=== PATIENT | female | born 1980 | race Caucasian/White ===

== ENCOUNTER 2024-08-10 12:15 | Emergency (ER) | payer OTHER ==
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
[2024-08-10 12:35] VITALS: TEMP 98.9
[2024-08-10] MEDS ORDERED: BABY ASPIRIN 81 MG CHEW ONE (12:48)
[2024-08-10] MEDS: BABY ASPIRIN 81 MG CHEW PO ONE (12:51)
[2024-08-10 12:57] LABS: Absolute Neutrophil Ct (ANC) 4.68 x10^3/uL (1.56-6.13); BASOPHIL % 1.1 % (0.1-1.2); Basophil (Absolute #) 0.08 x10^3/uL (0.01-0.08); Eosinophil % 0.7 % (0.7-5.8); Eosinophil (Absolute #) 0.05 x10^3/uL (0.04-0.36); Hematocrit 37.2 % (34.1-44.9); Hemoglobin 12.2 g/dL (11.2-15.7); IMMATURE GRAN # 0.02 x10^3u/L (0.001-0.031); IMMATURE GRAN % 0.3 % (0.001-0.429); Lymphocyte (Absolute #) 2.24 x10^3/uL (1.18-3.74); Lymphocytes % 30.2 % (19.3-51.7); Mean Cell Volume 88.6 fL (79.4-94.8); Mean Corpuscular Hgb Concent. 32.8 g/dL (32.2-35.5); Mean Platelet Volume 10.1 fL (9.4-12.3); Monocyte (Absolute #) 0.34 x10^3/uL (0.24-0.86); Monocytes % 4.6 % (4.7-12.5); Neutrophil % 63.1 % (34.0-71.1); Platelet Count 365 x10^3/uL (182-369); Red Cell Distribution Width 13.2 % (11.7-14.4); White Blood Count 7.4 x10^3/uL (3.98-10.04)
--- NOTE | 2024-08-10 13:08 | XRAY ---
Indication: Chest pain. Comparison: None Portable chest hyperinflated and clear. Heart not enlarged. Bony thorax intact. No acute findings.
[2024-08-10 13:12] LABS: ACETAMINOPHEN < 10 ug/ml (10-30); ALBUMIN 4.8 g/dL (3.5-5.0); ALKALINE PHOSPHATASE 120 U/L (38-126); ANION GAP 17.6 MEQ/L (5-15); BLOOD UREA NITROGEN 11 mg/dL (7-17); CHLORIDE 108 mmol/L (98-107); Calcium 9.6 mg/dL (8.4-10.2); Carbon Dioxide 20 mmol/L (22-30); Creatinine 1 0.62 mg/dL (0.52-1.04); EST GLOMERULAR FILTRATION RATE 111.2 ML/MIN; ETHYL ALCOHOL < 10 mg/dL (0-10); Glucose 94 mg/dL (74-106); Potassium 4.1 mmol/L (3.5-5.1); SALICYLATE < 1.0 mg/dL (2-20); SGOT/AST 24 U/L (14-36); SGPT/ALT 13 U/L (0-35); SODIUM 142 mmol/L (135-145); Total Protein 7.5 g/dL (6.3-8.2)
[2024-08-10 13:24] LABS: MAGNESIUM 1.9 mg/dL (1.6-2.3); TROPONIN < 0.012 ng/mL (0.000-0.033)
[2024-08-10] MEDS ORDERED: Sodium Chloride 0.9% 1000 ML 1,000 ML ONE (13:32)
[2024-08-10] MEDS: Sodium Chloride 0.9% 1000 ML 1,000 ML IV STA (13:35)
--- NOTE | 2024-08-10 14:57 | XRAY ---
Indication: Pain following fall. Multiple contiguous images obtained through the cervical spine. Sagittal and coronal reformatted images obtained. Comparison: None Axial images negative for acute fracture, suspicious bony lesions, or spinal canal stenosis. Minimal/mild C3-C7 anterior/posterior endplate spurring. Mild/moderate bilateral C2-C6 degenerative facet hypertrophy. Sagittal and coronal reformatted images demonstrates lordotic reversal, positional versus paraspinal spasm. 2 mm anterolisthesis C3 on C4 on C5. Minimal C5-C6 disc space narrowing. No acute compression fracture, subluxation, or jumped facet. Normal appearing craniocervical junction. Visualized noncontrasted soft tissues including base of brain unremarkable. Lung apices demonstrates mild biapical pleural thickening and subpleural cystic changes. Impression: 1. Negative acute fracture. 2. Cervical lordotic reversal, positional versus paraspinal spasm. 3. Multilevel degenerative spondylosis and minimal grade 1 listhesis C3 on C4 on C5. 4. Biapical pleural thickening & subpleural cystic changes.
[2024-08-10] MEDS ORDERED: Ativan 2 MG/1 ML VIAL ONE (16:07)
[2024-08-10] MEDS: Ativan 2 MG/1 ML VIAL IV ONE (16:10)
[2024-08-10 16:15] VITALS: O2SAT 97
[2024-08-10 16:19] LABS: Appearance Clear (Clear); Bacteria None Seen /HPF (None Seen); Bilirubin Negative (Negative); Blood Negative (Negative); Epithelial Cells None Seen /HPF (None Seen); Glucose, Urine Negative (Negative); Hyaline Casts NONE SEEN /LPF (0-2); Ketones Negative (Negative); Leukocyte Esterase Moderate (Negative); Nitrite Negative (Negative); Protein,Urine Dip Negative (Negative); RBC 0-2 /HPF (0-5); Urobilinogen 0.2 mg/dL (0.2)
[2024-08-10 16:28] LABS: Amphetamine,Urine NEGATIVE (NEGATIVE); Barbiturate,Urine NEGATIVE (NEGATIVE); Benzodiazepine,Urine NEGATIVE (NEGATIVE); Cocaine,Urine NEGATIVE (NEGATIVE); Methadone,Urine NEGATIVE (NEGATIVE); Opiate,Urine NEGATIVE (NEGATIVE); PCP,Urine NEGATIVE (NEGATIVE); THC,Urine POSITIVE (NEGATIVE)
[2024-08-10 17:13] VITALS: BP 156/103; PULSE 89; RESP 10
== END 2024-08-10 17:34 | disposition home or self-care (01) ==
LOC: ED 12:15
DX: R07.9 Chest pain, unspecified (principal); Z79.899 Other long term (current) drug therapy; Z59.811 Housing instability, housed, with risk of homelessness; Z59.41 Food insecurity; Z59.82 Transportation insecurity; Z63.9 Problem related to primary support group, unspecified; Z56.0 Unemployment, unspecified; Z59.9 Problem related to housing and economic circumstances, unspecified; Z75.3 Unavailability and inaccessibility of health-care facilities
CPT/HCPCS: 36415; 71045; 72125; 80053; 80143; 80179; 80307; 81001; 82077; 83735; 84484; 85025; 93005; 93041; 94760; 96361; 96374; 96375; 99285; J2060; A9270-GY

== ENCOUNTER 2024-09-05 19:57 | Emergency (ER) | payer OTHER ==
--- NOTE | 2024-09-05 20:10 | ERPHSYRPT ---
- History of Present Illness Time Seen by Provider: 09/05/24 20:10 Historian: patient Exam Limitations: no limitations Physician History: Patient is a 44-year-old smoker presents to our ED for evaluation of what appeared to be a panic attack. However into the panic attack patient began to experience chest pain. Chest pain described as an ache that substernal. No associated nausea vomiting or diaphoresis. No trauma no fever. No trauma no fever. Symptoms are mild to moderate in intensity. No specific worsening or improving factors. Patient otherwise feels well. She voices no other complaints or concerns at this time. Portions of this note were created with voice recognition technology. There may be grammatical, spelling, punctuation or sound alike errors Timing/Duration: today Activities at Onset: none Quality: aching Location: substernal Chest Pain Radiation: no radiation Severity of Pain-Max: moderate Severity of Pain-Current: mild Modifying Factors: Improves With: nothing Associated Symptoms: denies symptoms Prior Chest Pain/Cardiac Workup: no prior chest pain Nitro Today/Relief: no nitro taken today Aspirin Treatment Today: no aspirin today Allergies/Adverse Reactions: peanut Allergy (Severe, Verified 08/10/24 12:37) Shortness of Breath Home Medications: Escitalopram Oxalate [Lexapro] 10 mg PO DAILY 08/10/24 [History] Quetiapine Fumarate [Seroquel] 50 mg PO HS 08/10/24 [History] Hx Tetanus, Diphtheria Vaccination/Date Given: No Hx Influenza Vaccination/Date Given: No Hx Pneumococcal Vaccination/Date Given: No Travel Risk - Emerging Infectious Disease Are you exhibiting symptoms associated with any current EIDs: No - Review of Systems Constitutional: No Symptoms, No Fever, No Chills Eyes: No Symptoms Ears, Nose, & Throat: No Symptoms Respiratory: No Symptoms, No Cough, No Dyspnea Cardiac: No Symptoms, No Chest Pain, No Edema, No Syncope Abdominal/Gastrointestinal: No Symptoms, No Abdominal Pain, No Nausea, No Vomiting, No Diarrhea Genitourinary Symptoms: No Symptoms, No Dysuria Musculoskeletal: No Symptoms, No Back Pain, No Neck Pain Skin: No Symptoms, No Rash Neurological: No Symptoms, No Dizziness, No Focal Weakness, No Sensory Changes Psychological: No Symptoms Endocrine: No Symptoms Hematologic/Lymphatic: No Symptoms Immunological/Allergic: No Symptoms All Other Systems: Reviewed and Negative - Past Medical History Pertinent Past Medical History: Yes Psycho-Social History: Depression - Past Surgical History Past Surgical History: Yes Other Surgical History: left side of head. right hand. left hand. left ankle - Female History Hx Last Menstrual Period: menopause - Social History Smoking Status: Current every day smoker How long have you smoked: years Exposure to second hand smoke: Yes Drug Use: none - Social Determinants of Health Will the patient participate in the screening: Yes Do you worry about a steady place to live?: Yes In the past 12 months,have you had to go without utilities?: No Transportation Issues: Yes Has anyone in your support network made you feel unsafe?: Yes Have you or anyone in your house had to go w/o enough food: Yes - Nursing Vital Signs Nursing Vital Signs: Initial Vital Signs Temperature 98.7 F 09/05/24 19:58 Pulse Rate 74 09/05/24 19:58 Respiratory Rate 16 09/05/24 19:58 Blood Pressure 129/85 09/05/24 19:58 O2 Sat by Pulse Oximetry 98 09/05/24 19:58 Pain Scale Pain Intensity 5 - Physical Exam General Appearance: no apparent distress, alert Eye Exam: PERRL/EOMI, eyes nml inspection Ears, Nose, Throat Exam: normal ENT inspection, moist mucous membranes Neck Exam: normal inspection, non-tender, supple, full range of motion Respiratory Exam: normal breath sounds, lungs clear, airway intact, No respiratory distress Cardiovascular Exam: regular rate/rhythm, normal heart sounds Gastrointestinal/Abdomen Exam: soft, No tenderness, No mass Back Exam: normal inspection, No CVA tenderness, No vertebral tenderness Extremity Exam: normal inspection, normal range of motion Neurologic Exam: alert, oriented x 3, cooperative, normal mood/affect, sensation nml, No motor deficits Skin Exam: normal color, warm, dry Lymphatic Exam: No adenopathy SpO2 Interpretation: normal SpO2: 98 O2 Delivery: Room Air - Course Nursing assessment & vital signs reviewed: Yes EKG Interpreted by Me: RATE (90), Sinus Rhythm, NORMAL AXIS, NORMAL INTERVALS, NORMAL QRS - Radiology Exams Chest X-ray Interpretation: Interpreted by me (NO acute findings) Ordered Tests: Active Orders 24 hr Category Date Time Status Pharmaceutical Specialty Representative STAT Care 09/05/24 20:13 Active EKG-ER Only STAT Care 09/05/24 20:13 Active IV Insertion STAT Care 09/05/24 20:13 Active Pulse Oximetry (ED) STAT Care 09/05/24 20:13 Active ACO SDOH Referral ONCE Cons 09/05/24 20:39 Active CHEST 1 VIEW (PORTABLE) Stat Exams 09/05/24 21:39 Taken CBC W DIFF Stat Lab 09/05/24 20:20 Completed CMP Stat Lab 09/05/24 20:20 Completed D-DIMER QUANTITATIVE Stat Lab 09/05/24 20:20 Completed HCG QUALITATIVE, URINE Stat Lab 09/05/24 Ordered NT PRO BNPII Stat Lab 09/05/24 20:20 Completed TROPONIN Q4H Lab 09/05/24 20:20 Completed TROPONIN Stat Lab 09/05/24 23:35 Completed UA W/RFX UR CULTURE Stat Lab 09/05/24 20:13 Ordered Lab/Rad Data: Laboratory Result Diagrams 09/05/24 20:20 09/05/24 20:20 Laboratory Results 09/05/24 09/05/24 09/05/24 Range/Units 23:35 20:20 20:20 WBC (3.98-10.04) x10^3/uL RBC (3.93-5.22) x10^6/uL Hgb (11.2-15.7) g/dL Hct (34.1-44.9) % MCV (79.4-94.8) fL MCH (25.6-32.2) pg MCHC (32.2-35.5) g/dL RDW (11.7-14.4) % Plt Count (182-369) x10^3/uL MPV (9.4-12.3) fL Gran % (34.0-71.1) % Immature Gran % (Auto) (0.001-0.429) % Nucleat RBC Rel Count (0.00-0.2) % Eos # (Auto) (0.04-0.36) x10^3/uL Immature Gran # (Auto) (0.001-0.031) x10^3u/L Absolute Lymphs (auto) (1.18-3.74) x10^3/uL Absolute Monos (auto) (0.24-0.86) x10^3/uL Absolute Nucleated RBC (0.00-0.012) x10^3u/L Lymphocytes % (19.3-51.7) % Monocytes % (4.7-12.5) % Eosinophils % (0.7-5.8) % Basophils % (0.1-1.2) % Absolute Granulocytes (1.56-6.13) x10^3/uL Basophils # (0.01-0.08) x10^3/uL D-Dimer 0.29 (0.0-0.50) mg/L Sodium (135-145) mmol/L Potassium (3.5-5.1) mmol/L Chloride (98-107) mmol/L Carbon Dioxide (22-30) mmol/L Anion Gap (5-15) MEQ/L BUN (7-17) mg/dL Creatinine (0.52-1.04) mg/dL Estimated GFR ML/MIN Glucose (74-106) mg/dL Calcium (8.4-10.2) mg/dL Total Bilirubin (0.2-1.3) mg/dL AST (14-36) U/L ALT (0-35) U/L Alkaline Phosphatase (38-126) U/L Troponin I < 0.012 < 0.012 (0.000-0.033) ng/mL NT-Pro-B Natriuret Pep (<300) pg/mL Serum Total Protein (6.3-8.2) g/dL Albumin (3.5-5.0) g/dL 09/05/24 09/05/24 Range/Units 20:20 20:20 WBC 8.4 (3.98-10.04) x10^3/uL RBC 3.77 L (3.93-5.22) x10^6/uL Hgb 11.1 L (11.2-15.7) g/dL Hct 33.7 L (34.1-44.9) % MCV 89.4 (79.4-94.8) fL MCH 29.4 (25.6-32.2) pg MCHC 32.9 (32.2-35.5) g/dL RDW 13.2 (11.7-14.4) % Plt Count 303 (182-369) x10^3/uL MPV 10.4 (9.4-12.3) fL Gran % 55.5 (34.0-71.1) % Immature Gran % (Auto) 0.4 (0.001-0.429) % Nucleat RBC Rel Count 0.0 (0.00-0.2) % Eos # (Auto) 0.05 (0.04-0.36) x10^3/uL Immature Gran # (Auto) 0.03 (0.001-0.031) x10^3u/L Absolute Lymphs (auto) 3.13 (1.18-3.74) x10^3/uL Absolute Monos (auto) 0.45 (0.24-0.86) x10^3/uL Absolute Nucleated RBC 0.00 (0.00-0.012) x10^3u/L Lymphocytes % 37.3 (19.3-51.7) % Monocytes % 5.4 (4.7-12.5) % Eosinophils % 0.6 L (0.7-5.8) % Basophils % 0.8 (0.1-1.2) % Absolute Granulocytes 4.66 (1.56-6.13) x10^3/uL Basophils # 0.07 (0.01-0.08) x10^3/uL D-Dimer (0.0-0.50) mg/L Sodium 140 (135-145) mmol/L Potassium 3.7 (3.5-5.1) mmol/L Chloride 108 H (98-107) mmol/L Carbon Dioxide 19 L (22-30) mmol/L Anion Gap 16.7 H (5-15) MEQ/L BUN 10 (7-17) mg/dL Creatinine 0.67 (0.52-1.04) mg/dL Estimated GFR 109.1 ML/MIN Glucose 93 (74-106) mg/dL Calcium 9.2 (8.4-10.2) mg/dL Total Bilirubin 0.40 (0.2-1.3) mg/dL AST 22 (14-36) U/L ALT 13 (0-35) U/L Alkaline Phosphatase 106 (38-126) U/L Troponin I (0.000-0.033) ng/mL NT-Pro-B Natriuret Pep 91.8 (<300) pg/mL Serum Total Protein 6.8 (6.3-8.2) g/dL Albumin 4.3 (3.5-5.0) g/dL - Progress Progress: improved Air Movement: good Progress Note: 44-year-old female presents to our ED for evaluation of chest pain. Patient reports she was experiencing a panic attack when symptoms occurred. Chest pain was described as a substernal ache. Physical exam essentially nonremarkable. Troponin negative x 2. EKG sinus rhythm. D-dimer negative. Chest x-ray within normal limits. Patient pain-free. Patient's heart score is a 2. Patient will be discharged home. No indication for further workup at this time. Will discharge home. Patient agrees to follow-up with her primary care doctor within 48 hours for reevaluation. Portions of this note were created with voice recognition technology. There may be grammatical, spelling, punctuation or sound alike errors Complexity of problem addressed is moderate acute complicated. No critical care time. Complexity of data reviewed and analyzed is moderate. Test ordered chest reviewed results analyzed and correlated clinically with history and physical exam. Risk of complication and or risk of morbidity/mortality of patient management is low. Vital stable. Time spent to discharge patient is approximately 15 minutes. Plan of care established for shared decision making. No social determinants of health present to impede follow-up. Portions of this note were created with voice recognition technology. There may be grammatical, spelling, punctuation or sound alike errors 09/06/24 00:48 Blood Culture(s) Obtained: No Antibiotics given: No Counseled pt/family regarding: diagnosis, need for follow-up, rad results - Departure Departure Disposition: Home Clinical Impression: Chest pain, Panic attack Condition: Stable Critical Care Time: No Referrals: BRAYAN DONOVAN DO [Primary Care Provider] - Follow up/PCP as directed Additional Instructions: Discharge/Care Plan KIMESTRELLITA was seen on 09/06/24 in the Emergency Room. The patient was counseled regarding Diagnosis,Lab results, Imaging studies, need for follow up and when to return to the Emergency Room. Prescriptions given: Discharge Note I have spoken with the patient and/or caregivers. I have explained the patient's condition, diagnosis and treatment plan based on the information available to me at this time. I have answered the patient's and/or caregiver's questions and addressed any concerns. The patient and/or caregivers have as good understanding of the patient's diagnosis, condition and treatment plan as can be expected at this point. The vital signs have been stable. The patient's condition is stable and appropriate for discharge from the emergency department. The patient will pursue further outpatient evaluation with the primary care physician or other designated or consulting physician as outlined in the discharge instructions. The patient and/or caregivers are agreeable to this plan of care and follow-up instructions have been explained in detail. The patient and/or caregivers have received these instruction. The patient/and or caregivers are aware that any significant change in condition or worsening of symptoms should prompt an immediate return to this or the closest emergency department or call 911.
[2024-09-05 20:26] LABS: Absolute Neutrophil Ct (ANC) 4.66 x10^3/uL (1.56-6.13); BASOPHIL % 0.8 % (0.1-1.2); Basophil (Absolute #) 0.07 x10^3/uL (0.01-0.08); Eosinophil % 0.6 % (0.7-5.8); Eosinophil (Absolute #) 0.05 x10^3/uL (0.04-0.36); Hematocrit 33.7 % (34.1-44.9); Hemoglobin 11.1 g/dL (11.2-15.7); IMMATURE GRAN # 0.03 x10^3u/L (0.001-0.031); IMMATURE GRAN % 0.4 % (0.001-0.429); Lymphocyte (Absolute #) 3.13 x10^3/uL (1.18-3.74); Lymphocytes % 37.3 % (19.3-51.7); Mean Cell Volume 89.4 fL (79.4-94.8); Mean Corpuscular Hemoglobin 29.4 pg (25.6-32.2); Mean Corpuscular Hgb Concent. 32.9 g/dL (32.2-35.5); Mean Platelet Volume 10.4 fL (9.4-12.3); Monocyte (Absolute #) 0.45 x10^3/uL (0.24-0.86); Monocytes % 5.4 % (4.7-12.5); Neutrophil % 55.5 % (34.0-71.1); Platelet Count 303 x10^3/uL (182-369); Red Blood Count 3.77 x10^6/uL (3.93-5.22); Red Cell Distribution Width 13.2 % (11.7-14.4); White Blood Count 8.4 x10^3/uL (3.98-10.04)
[2024-09-05 20:39] VITALS: TEMP 98.7
[2024-09-05 20:53] LABS: ALBUMIN 4.3 g/dL (3.5-5.0); ANION GAP 16.7 MEQ/L (5-15); BILIRUBIN,TOTAL 0.4 mg/dL (0.2-1.3); Calcium 9.2 mg/dL (8.4-10.2); Creatinine 1 0.67 mg/dL (0.52-1.04); EST GLOMERULAR FILTRATION RATE 109.1 ML/MIN; NT PRO BNPII 91.8 pg/mL (<300); Potassium 3.7 mmol/L (3.5-5.1); Total Protein 6.8 g/dL (6.3-8.2)
[2024-09-06 00:31] VITALS: O2SAT 98
[2024-09-06 00:57] VITALS: BP 128/73; PULSE 70; RESP 17
--- NOTE | 2024-09-06 08:45 | XRAY ---
Indication: Pain. Comparison: August 10, 2024 Portable apical lordotic chest remains hyperinflated and clear. Heart not enlarged. Bony thorax intact. No new/acute findings.
== END 2024-09-06 00:58 | disposition home or self-care (01) ==
LOC: ED 19:57
DX: R07.9 Chest pain, unspecified (principal); F41.0 Panic disorder [episodic paroxysmal anxiety]; Z79.899 Other long term (current) drug therapy; Z72.0 Tobacco use; Z59.819 Housing instability, housed unspecified; Z59.82 Transportation insecurity; Z63.9 Problem related to primary support group, unspecified; Z59.41 Food insecurity
CPT/HCPCS: 36415; 71045; 80053; 83880; 84484; 85025; 85379; 93005; 93041; 94760; 99284; 99285